=== PATIENT | female | born 1970 | race Caucasian/White ===

== ENCOUNTER 2020-04-30 15:52 | Outpatient (REF) | payer OTHER, SELFPAY ==
[2020-04-30 21:50] LABS: HCT 40.9 % (36.0-46.0); HGB 13.5 g/dL (11.2-15.7); MCH 30.3 pg (27.0-33.0); MCV 91.7 fL (80-95); MPV 11.6 fL (8.0-11.0); Platelet Count 290 10^3/uL (130-400); RBC 4.46 10^6/uL (3.93-5.22); RDW 12.6 % (11.7-14.6)
[2020-04-30 22:46] LABS: Vitamin D 25 Total 33.1 ng/ml (30-100)
[2020-04-30 22:52] LABS: Hemoglobin A1C 5.3 % (<5.7)
[2020-04-30 22:54] LABS: ALT 52 U/L (14-59); AST 34 U/L (15-37); Albumin 4.1 g/dL (3.4-5.0); Alkaline Phosphatase 122 U/L (46-116); Anion Gap 8.9 mmol/L (3-11); BUN 13 mg/dL (7-18); Bilirubin, Total 0.7 mg/dL (0.2-1.0); CO2 26.1 mmol/L (21.0-32.0); CREATININE 0.91 mg/dL (0.55-1.02); Calcium 9.1 mg/dL (8.5-10.1); Calculated LDL 139 mg/dL (<100); Chloride 103 mmol/L (98-107); Cholesterol 223 mg/dL (<200); Glucose 97 mg/dL (74-106); HDL Cholesterol 74 mg/dL (40-60); Potassium 3.9 mmol/L (3.5-5.1); Sodium 138 mmol/L (136-145); TSH (W/Ref FT4) 2.48 uIU/mL (0.36-3.74); Total Protein 7.5 g/dL (6.4-8.2); Triglyceride 51 mg/dL (<150)
== END 2020-04-30 16:12 ==
LOC: NCHCN 15:52
PROVIDERS: PCP Nurse Practitioner Family; Visit Provider Nurse Practitioner Family
DX: Z00.00 Encounter for general adult medical examination without abnormal findings (principal); E55.9 Vitamin D deficiency, unspecified; Z13.220 Encounter for screening for lipoid disorders; Z13.1 Encounter for screening for diabetes mellitus; Z13.29 Encounter for screening for other suspected endocrine disorder
CPT/HCPCS: 80053; 80061; 82306; 85027; 83036; 84443

== ENCOUNTER 2022-04-02 09:32 | Outpatient (CLI) | payer OTHER, SELFPAY ==
--- NOTE | 2022-04-02 09:00 | DI.RAD_ITS ---
Exam(s) XR KNEE RT 3V AP,LAT,DAMON EXAM: XR KNEE RT 3V AP,LAT,DAMON CLINICAL HISTORY: pain in knee. TECHNIQUE: 2D digital imaging was performed of the right knee. Three views obtained. AP, lateral an d PA tunnel views were obtained. COMPARISON: CR XR KNEE LT 3V AP,LAT,DAMON from 04/02/2022 FINDINGS: BONES: No acute fracture is present. No bony destructive lesion is seen. JOINTS: The knee is normally aligned. No joint effusion is seen. There is mild narrowing and periarti cular spurring in the medial femoral tibial joint. SOFT TISSUE: Normal. IMPRESSION: Mild degenerative changes of the right knee. DATA REPOSITORY: RADIATION DOSE DELIVERED:
--- NOTE | 2022-04-02 09:11 | DI.RAD_ITS ---
Exam(s) XR KNEE LT 3V AP,LAT,DAMON EXAM: XR KNEE LT 3V AP,LAT,DAMON CLINICAL HISTORY: LEFT KNEE PAIN. TECHNIQUE: 2D digital imaging was performed of the left knee. Three images were obtained. AP, late ral and PA tunnel views were obtained. COMPARISON: No exams were available for comparison FINDINGS: BONES: No acute fracture is present. No bony destructive lesion is seen. JOINTS: The knee is normally aligned. There is mild narrowing of the medial femoral tibial joint. Th ere is also mild periarticular spurring medially. There is a small joint effusion. SOFT TISSUE: Normal. IMPRESSION: 1. Mild degenerative changes in the medial left knee. 2. Small joint effusion. DATA REPOSITORY: RADIATION DOSE DELIVERED:
== END 2022-04-02 09:33 | disposition home or self-care (01) ==
LOC: DIORS 09:32
PROVIDERS: PCP Nurse Practitioner Family; Referring Provider Nurse Practitioner Family; Visit Provider Student in an Organized Health Care Education/Training Program
DX: M17.0 Bilateral primary osteoarthritis of knee
CPT/HCPCS: 73562

== ENCOUNTER 2023-02-06 12:04 | Emergency (ER) | payer OTHER, SELFPAY ==
[2023-02-06 12:11] VITALS: BP 152/96; PULSE 91; RESP 18; TEMP 37.1; O2SAT 98
--- OUTSIDE RECORDS SUMMARY | 2023-02-06 12:36 | XMS_ITS | CCD ---
Author Name Unknown Address [address] [place] [address] [id number] Organization Unknown Address [address] [place] [address] [id number] Care Team Providers Care Window Dresser Name Role Phone ZHORA JAMA MD Attending Physician [phone] Vital Signs Unknown or Not Available. Allergies Unknown or Not Available. Procedures Unknown or Not Available. History of Immunizations Unknown or Not Available. Problems Unknown or Not Available. Results Unknown or Not Available. Active Medications Unknown or Not Available. Medications Administered During Visit Unknown or Not Available. Encounters Encounter Diagnosis Diagnosis Code Start Date Pain in right shoulder [id number] Social History Smoking Status Code Start Date End Date Never smoker [id number] Patient Decision Aids Unknown or Not Available. Discharge Instructions You were admitted to [facility] 01 on 12/20/2020 10:37 with a principal diagnosis of Pain in right shoulder You were discharged from [facility] 01 on 12/20/2020 10:37 Should you have any questions prior to discharge, please contact a member of your healthcare team. If you have left the hospital and have any questions, please contact your primary care physician. Chief Complaint and Reason For Visit Unknown or Not Available. Function Status Unknown or Not Available. Plan of Care Unknown or Not Available. Referral/Transition of Care Unknown or Not Available.
--- OUTSIDE RECORDS SUMMARY | 2023-02-06 12:36 | XMS_ITS | CCD ---
Author Name Unknown Address [address] [place] [address] [id number] Organization Unknown Address [address] [place] [address] [id number] Care Team Providers Care Skin Installer Name Role Phone BRE FU Attending Physician [phone] Vital Signs Unknown or Not Available. Allergies Unknown or Not Available. Procedures Unknown or Not Available. History of Immunizations Unknown or Not Available. Problems Unknown or Not Available. Results Unknown or Not Available. Active Medications Unknown or Not Available. Medications Administered During Visit Unknown or Not Available. Encounters Encounter Diagnosis Diagnosis Code Start Date Pain in left knee [id number] 03/23/2022 Social History Smoking Status Code Start Date End Date Never smoker [id number] Patient Decision Aids Unknown or Not Available. Discharge Instructions You were admitted to on 03/23/2022 11:03 with a principal diagnosis of Pain in left knee You were discharged from on 03/23/2022 09:57 Should you have any questions prior to [...]
--- OUTSIDE RECORDS SUMMARY | 2023-02-06 12:36 | XMS_ITS | Continuity of Care Document ---
Author Name Unknown Organization [facility] Address [address] [place] [address] Encounter LTTL_MD FIN NBR [id number] Date(s): 10/20/22 - 10/20/22 [facility] [address] [place] [address]- Discharge Disposition: Home or Self Care Attending Physician: Unavailable, Physician Admitting Physician: Unavailable, Physician Results Laboratory List Name Date Automated Diff 10/20/22 CBC w/ Diff 10/20/22 Comprehensive Metabolic Panel 10/20/22 Hgb A1c 10/20/22 Insulin LC 10/20/22 Lipid Panel 10/20/22 Lyme Disease (Borrelia Burgdorferi Abs) 10/20/22 Thyroid Stimulating Hormone 10/20/22 Most recent to oldest [Reference Range]: 1 WBC [4.8-10.8 K/mcL] 8.0 K/mcL (10/20/22 8:52 AM) RBC [4.20-5.40 Million/mcL] 4.62 Million /mcL (10/20/22 8:52 AM) Neutro Auto [42.2-75.2 %] 51.1 % (10/20/22 8:52 AM) Lymph Auto [20.5-51.1 %] 35.8 % (10/20/22 8:52 AM) [facility] Auto [1.7-9.3 %] 7.2 % (10/20/22 8:52 AM) Basophil Auto [0.0-0.8 %] 0.8 % (10/20/22 8:52 AM) BUN [8-26 mg/dL] 20 mg/dL (10/20/22 8:52 AM) Cholesterol Total [129-209 mg/dL] 230 mg /dL *HI* (10/20/22 8:52 AM) LDL 155.8 *NA* (10/20/22 8:52 AM) Glucose Level [74-106 mg/dL] 93 mg/dL (10/20/22 8:52 AM) Potassium Level [3.5-5.1 mmol/L] 4.6 mmo l/L (10/20/22 8:52 AM) Baso Absolute [0.0-0.2 K/mcL] 0.1 K/mcL (10/20/22 8:52 AM) MCV [81.0-99.0 fL] 93.5 fL (10/20/22 8:52 AM) HDL [40-80 mg/dL] 64 mg/dL (10/20/22 8:52 AM) AST [15-41 IntlUnit/L] 26 IntlUnit/L (10/20/22 8:52 AM) ALT [14-54 IntlUnit/L] 27 IntlUnit/L (10/20/22 8:52 AM) MCHC [32.0-36.0 g/dL] 32.2 g/dL (10/20/22 8:52 AM) Osmolality [275-295 mOsm/kg] 274 mOsm/kg *LOW* (10/20/22 8:52 AM) Sodium Level [134-143 mmol/L] 136 mmol/L (10/20/22 8:52 AM) Chol/HDL 3.6 *NA* (10/20/22 8:52 AM) Lymph Absolute [1.2-3.4 K/mcL] 2.8 K/mcL (10/20/22 8:52 AM) Hct [37.0-47.0 %] 43.2 % (10/20/22 8:52 AM) Triglycerides [10-150 mg/dL] 50 mg/dL (10/20/22 8:52 AM) Calcium Level [8.9-10.3 mg/dL] 9.3 mg/dL (10/20/22 8:52 AM) [facility] Absolute [0.1-0.6 K/mcL] 0.6 K/mcL (10/20/22 8:52 AM) Albumin Level [3.5-5.0 g/dL] 4.1 g/dL (10/20/22 8:52 AM) Protein Total [6.5-8.1 g/dL] 7.3 g/dL (10/20/22 8:52 AM) MCH [27.0-31.0 pg] 30.1 pg (10/20/22 8:52 AM) Neutro Absolute [1.4-6.5 K/mcL] 4.1 K/mc L (10/20/22 8:52 AM) Bilirubin Total [0.2-1.2 mg/dL] 0.5 mg/d L (10/20/22 8:52 AM) Hgb [12.0-16.0 g/dL] 13.9 g/dL (10/20/22 8:52 AM) Alk Phos [38-130 IntlUnit/L] 104 IntlUni t/L (10/20/22 8:52 AM) MPV [7.4-10.4 fL] 11.3 fL *HI* (10/20/22 8:52 AM) Platelets [130-400 K/mcL] 314 K/mcL (10/20/22 8:52 AM) CO2 [22-32 mmol/L] 27 mmol/L (10/20/22 8:52 AM) Eos Absolute [0.0-0.2 K/mcL] 0.4 K/mcL *HI* (10/20/22 8:52 AM) TSH [0.45-5.33 mIntlUnit/mL] 4.39 mIntlU nit/mL (10/20/22 8:52 AM) eAvg Glucose 117 *NA* (10/20/22 8:52 AM) Chloride Level [98-111 mmol/L] 101 mmol/ L (10/20/22 8:52 AM) RDW-CV [11.5-14.5 %] 12.5 % (10/20/22 8:52 AM) A/G Ratio 1.3 *NA* (10/20/22 8:52 AM) BUN/Creat Ratio [8.0-20.0] 29.4 *HI* (10/20/22 8:52 AM) Globulin 3.2 *NA* (10/20/22 8:52 AM) Imm Gran Absolute 0.01 *NA* (10/20/22 8:52 AM) Imm Gran Auto [0.0-0.5 %] 0.1 % (10/20/22 8:52 AM) Slide Review Not Indicated (10/20/22 8:52 AM) Insulin LC [2.6-24.9 mcIntlUnit/mL] 10.9 mcIntlUnit/mL 1 *NA* (10/20/22 8:52 AM) Lyme IgG [Negative] Negative (10/20/22 8:52 AM) Lyme IgM [Negative] Negative (10/20/22 8:52 AM) Hgb A1c Percent [4.0-6.0 %] 5.7 % (10/20/22 8:52 AM) .Hb 15.5 g/dL *NA* (10/20/22 8:52 AM) .Hgb A1c 0.6 g/dL *NA* (10/20/22 8:52 AM) Creatinine Level [0.44-1.00 mg/dL] 0.68 mg/dL (10/20/22 8:52 AM) Anion Gap [3.0-12.0] 8.0 (10/20/22 8:52 AM) Eos, Auto [0.00-3.00 %] 5.00 % *HI* (10/20/22 8:52 AM) eGFR CKD-EPI [>=60 mL/min/1.73 m2] 105 m L/min/1.73 m2 (10/20/22 8:52 AM) 1Result Comment: Performed At: RN [facility] [address] [id number] Darrel Deleon MD Ph:[phone] Patient Care team information Care Team Related Persons Name: SHAHEEN OTOOLE
--- NOTE | 2023-02-06 13:30 | DI.RAD_ITS ---
Exam(s) XR SHOULDER RT COMPLETE 2+V EXAM: XR SHOULDER RT COMPLETE 2+V CLINICAL HISTORY: Fall, Yesterday, decreased ROM, R/O Fx. TECHNIQUE: 2D digital imaging was performed of the right shoulder. Five images were obtained. AP, Grashey, Y-view and axillary views were obtained. COMPARISON: No exams were available for comparison FINDINGS: BONES: No acute fracture is present. No bony destructive lesion is seen. JOINTS: No dislocation present. There are mild degenerative changes at the acromioclavicular joint. The glenohumeral joint is unremarkable. SOFT TISSUE: Normal. IMPRESSION: No acute fracture or dislocation. DATA REPOSITORY: RADIATION DOSE DELIVERED:
[2023-02-06 13:32] VITALS: BP 158/112; PULSE 95; RESP 18; TEMP 36.7; O2SAT 97
--- NOTE | 2023-02-06 13:39 | ED.GENADUL_ITS ---
Discharge Plan Disposition Patient Disposition: Home Condition: Stable Discharge Details Clinical Impression: Sprain of right shoulder Primary Care Provider: Pia Aguilera ED Provider: Sherri Carmona Home Meds and New Rx's Prescriptions: New lidocaine 5 % adhesive patch,medicated 1 patch topical DAILY Qty: 15 0RF Rx Instructions: leave on most painful area for up to 12 hrs No Action escitalopram oxalate [Lexapro] 10 mg tablet 15 mg PO DAILY dextroamphetamine-amphetamine [Adderall] 20 mg tablet 20 mg PO DAILY Saxenda 3 mg/0.5 mL (18 mg/3 mL) Pen Injector 18 mg SUBCUT DAILY Discharge Instructions Instructions: Shoulder Sprain (ED) Additional Instructions: No evidence of fracture or dislocation noted on the x-rays today. Wear the sling as needed for comfort. Rest ice compression elevation. Follow-up with orthopedics within the next 1 week if continued pain. Insert ibuprofen use lidocaine patches to the affected area as directed. You are placed on a follow-up list they will call you for an appointment. You may call them if you do not hear from them within the next week or less. Please take Tylenol or Ibuprofen with food every 4-6 hours as needed for pain and swelling. Follow up with primary care provider in 3-5 days. Return to ED sooner if any worsening or concerns. Increase oral fluids. Referrals: Santo Baker PA [PHYSICI[facility] CAREER DEVELOPMENT SPECIALIST] - 1 week Discharge Data Discharge Date/Time-TO BE ENTERED AT DEPARTURE: 02/06/23 15:13 Medical Decision Making 52-year-old female presents to the ER with a chief complaint of right shoulder pain status post a mechanical fall last night landing on her right shoulder she reports she tripped over a railroad tie. Did not hit her head no neck or back pain denies any other associated symptoms. She reports she cannot sleep due to the pain. Past medical history includes degenerative joint disease of the knee, depression. No other significant past medical history or allergies. Patient given sling instructed on RICE procedures and follow-up with orthopedics. I do suspect possible rotator cuff injury or other ligament injury. This text was generated using [employer] system, please disregard any oddities of phrase or misspellings. Imaging Data Radiologic Study: Imaging: X-Ray Radiologist's impression: TECHNIQUE: Imaging protocol: Radiologic exam of the right shoulder. Views: 2 or more views. COMPARISON: No relevant prior studies available. FINDINGS: Bones/joints: There is normal motion between the internal and external rotation images. Examination negative for fracture or dislocation. The adjacent ribs and lung are within normal limits. Soft tissues: Unremarkable. IMPRESSION: No acute findings. HPI General Mode of arrival: ambulatory . Date/Time Provider Initiated Documentation: 02/06/23 12:16 . Limitations to Documentation: no limitations . Information obtained by: patient, RN notes reviewed and old records reviewed . HPI Narrative: 52-year-old female presents to the ER with a chief complaint of right shoulder pain status post a mechanical fall last night landing on her right shoulder she reports she tripped over a railroad tie. Did not hit her head no neck or back pain denies any other associated symptoms. She reports she cannot sleep due to the pain. Past medical history includes degenerative joint disease of the knee, depression. No other significant past medical history or allergies. Related Data Home Medications Medication Instructions Recorded Confirmed dextroamphetamine-amphetamine 20 20 mg PO DAILY 04/02/22 02/06/23 mg tablet (Adderall) escitalopram oxalate 10 mg tablet 15 mg PO DAILY 04/02/22 02/06/23 (Lexapro) lidocaine 5 % topical patch 1 patch topical DAILY #15 ea 02/06/23 liraglutide (weight loss) 3 mg/0.5 18 mg subcut DAILY 02/06/23 02/06/23 mL (18 mg/3 mL) subcut pen injector (Saxenda) Previous Rx's Medication Instructions Recorded lidocaine 5 % topical patch 1 patch topical DAILY #15 ea 02/06/23 Allergies Allergy/AdvReac Type Severity Reaction Status Date / Time No Known Allergies Allergy Verified 04/02/22 09:01 General Stated Complaint: Orthopedic HUMA: 4 Review of Systems All systems reviewed & are unremarkable except as noted in HPI and below Constitutional Constitutional: Reports as per HPI and Denies headache(s) ENT Ears, Nose, Mouth, and Throat: Denies vertigo, Denies headache(s) and Denies neck pain Musculoskeletal Musculoskeletal: Reports as per HPI, Denies back pain, Reports arthralgias (Right shoulder), Denies neck pain, Denies numbness and Denies tingling Neurologic Neurologic: Denies behavioral changes, Denies confusion, Denies vertigo, Denies headache(s), Denies numbness and Denies tingling Psychiatric Psychiatric: Denies behavioral changes and Denies confusion PFSH All Active Problems (Updated 02/06/23 @ 14:50 by Sherri Carmona NP) Sprain of right shoulder (Acute) Degenerative joint disease of left knee (Acute) Degenerative joint disease of right knee (Acute) Social History Smoking/Tobacco Use Status: Never Smoking risk assessment performed?: Yes Drug use: Never Substance use type: does not use Do you feel safe at home: Yes Do you feel safe in your relationship?: Yes Exam Back/Spine/Pelvis Back: no CVA tenderness Cervical Spine: normal cervical lordosis Thoracic/Lumbar Spine: thoracic and lumbar spine normal to inspection Pelvis: no pain with anterior-posterior compression Extrem General: normal to inspection Right upper extremity: elbow/forearm; wrist not examined and hand not examined Shoulder/upper arm images: 1. Tenderness with palpation no obvious deformity no swelling no erythema. Course Vital Signs Vital signs: Vital Signs Temperature 37.1 C 02/06/23 12:11 Pulse 91 H 02/06/23 12:11 Respiratory Rate 18 02/06/23 12:11 Blood Pressure 152/96 H 02/06/23 12:11 Pulse Oximetry 98 02/06/23 12:11 Temperature 36.7 C 02/06/23 13:32 Temperature Source Oral 02/06/23 13:32 Pulse 95 H 02/06/23 13:32 Respiratory Rate 18 02/06/23 13:32 Blood Pressure 158/112 H 02/06/23 13:32 Blood Pressure Position Sitting 02/06/23 12:11 Pulse Oximetry 97 02/06/23 13:32 Oxygen Delivery Method Room Air 02/06/23 13:32 Oxygen Flow Rate 0 02/06/23 13:32 Pain Level 8 02/06/23 13:32
[2023-02-06] MEDS: Acetaminophen 500 MG TAB 1000 MG PO (13:41)
--- NOTE | 2023-02-06 14:10 | DI.VRAD_ITS ---
PROCEDURE INFORMATION: Exam: XR Right Shoulder Exam date and time: 02/06/2023 1:52 PM Age: 52 years old Clinical indication: Injury or trauma; Other: Fall, yesterday, decreased rom, R/O FX TECHNIQUE: Imaging protocol: Radiologic exam of the right shoulder. Views: 2 or more views. COMPARISON: No relevant prior studies available. FINDINGS: Bones/joints: There is normal motion between the internal and external rotation images. Examination negative for fracture or dislocation. The adjacent ribs and lung are within normal limits. Soft tissues: Unremarkable. IMPRESSION: No acute findings. Dictated and Authenticated by: Vasu Ornelas MD. Ordering:MAYO Polanco MD
[2023-02-06] MEDS: Lidocaine 5% Patch 1 PATCH TP (15:06)
== END 2023-02-06 15:13 | disposition home or self-care (01) ==
PROVIDERS: Emergency Provider Registered Nurse Emergency; PCP Nurse Practitioner Family
DX: S43.401A Unspecified sprain of right shoulder joint, initial encounter (principal); W01.0XXA Fall on same level from slipping, tripping and stumbling without subsequent striking against object, initial encounter; Y92.89 Other specified places as the place of occurrence of the external cause; Y93.01 Activity, walking, marching and hiking; Y99.9 Unspecified external cause status
CPT/HCPCS: 99283; 73030